=== PATIENT | male | born 1980 | race Caucasian/White ===

== ENCOUNTER 2016-09-03 10:26 | Emergency (ER) | payer BC ==
[~2016-09-03] VITALS: Ht 165.1 cm; Wt 79.0 kg
[~2016-09-03 10:26] MED LIST: ALLEGRA-D 241 TABLET PO; DOES NOT KNOW MEDS
[2016-09-03 11:49] LABS: HEMATOCRIT 48.4 % (38.0-50.0); MCH 30.3 PG (29.0-34.0); MCHC 35.3 G/DL (30.0-36.0); MCV 85.8 FL (86-99); MEAN PLAT.VOLUME 9.6 uM^3 (9.0-12.4); PLATELET COUNT 216 K/uL (156-360); RBC DIS.WIDTH-CV 11.3 % (11.8-14.6); RBC DIS.WIDTH-SD 35.7 % (39-53); RED BLOOD COUNT 5.64 M/uL (4.00-5.50); WHITE BLOOD COUNT 5.9 K/uL (4.1-10.2)
[2016-09-03 12:01] LABS: CHLORIDE 106 mEq/L (99-109); POTASSIUM 4.6 mEq/L (3.7-5.4); SODIUM 138 mEq/L (136-147)
[2016-09-03 12:03] LABS: GLUCOSE 92 mg/dL (70-99)
[2016-09-03 12:04] LABS: ANION GAP 12 MEQ/L (2-14)
[2016-09-03 12:06] LABS: GFR ESTIMATE (CALCULATED) > 59 mL/min/
[2016-09-03 12:07] LABS: UREA NITROGEN (BUN) 11 mg/dL (9-23)
[2016-09-03 12:08] LABS: TROP-I INTERPRETATION NEGATIVE; TROPONIN-I < 0.01 ng/mL (0.0-0.30)
[2016-09-03 13:38] LABS: TROP-I INTERPRETATION NEGATIVE; TROPONIN-I < 0.01 ng/mL (0.0-0.30)
[2016-09-03 13:48] VITALS: BP 137/82
== END 2016-09-03 13:49 | disposition home or self-care (01) ==
LOC: EXP 10:26 → EME 10:26 → EXP 13:49
PROVIDERS: Nurse Practitioner Family
DX: R07.9 Chest pain, unspecified (principal); R10.13 Epigastric pain; K21.9 Gastro-esophageal reflux disease without esophagitis
CPT/HCPCS: 71020; 80048; 84484; 85027; 93005; 99281; 99285

== ENCOUNTER 2016-11-09 13:58 | Emergency (ER) | payer OTHER, BC ==
[~2016-11-09] VITALS: Ht 167.6 cm; Wt 80.3 kg
[2016-11-09 16:05] VITALS: BP 134/99
[2016-11-09] MEDS ORDERED: LIDODERM 5% P1 PATCH TD (16:51)
[2016-11-09] MEDS ORDERED: NAPROSYN500 MG PO (16:51)
== END 2016-11-09 17:03 | disposition home or self-care (01) ==
LOC: EME 13:58
DX: M54.5 Low back pain (principal); V59.49XA Driver of pick-up truck or van injured in collision with other motor vehicles in traffic accident, initial encounter; Z88.0 Allergy status to penicillin; Z88.8 Allergy status to other drugs, medicaments and biological substances; Z87.891 Personal history of nicotine dependence
CPT/HCPCS: 72100; 99281; 99283; J1885